=== PATIENT | female | born 1980 | race Two or more races ===

== ENCOUNTER 2024-05-22 15:25 | Emergency (ER) | payer BC ==
[~2024-05-22] VITALS: Ht 160 cm; Wt 53.1 kg
[2024-05-22] MEDS ORDERED: IBUP-1955 PO (16:46)
[2024-05-22 16:56] VITALS: BP 116/58; TEMP 98.3; O2SAT 99
== END 2024-05-22 16:57 | disposition home or self-care (01) ==
LOC: ER 15:36
DX: S09.8XXA Other specified injuries of head, initial encounter (principal); E03.9 Hypothyroidism, unspecified; R42 Dizziness and giddiness; R53.83 Other fatigue; H91.90 Unspecified hearing loss, unspecified ear; W22.8XXA Striking against or struck by other objects, initial encounter; Y93.89 Activity, other specified; Y92.89 Other specified places as the place of occurrence of the external cause; Y99.8 Other external cause status